=== PATIENT | male | born 1985 | race African-American/Black ===

== ENCOUNTER 2016-07-27 10:58 | Emergency (ER) | payer OTHER ==
[~2016-07-27] VITALS: Ht 193 cm; Wt 76.2 kg
[2016-07-27 11:27] VITALS: BP 91/68
[2016-07-27] MEDS ORDERED: LORA10TA19 PO (11:29)
--- NOTE | 2016-07-27 13:16 | NUR ---
Patient ambulated to bed 03.
--- NOTE | 2016-07-27 13:18 | NUR ---
30M BIB SELF C/O SHARP, MID-ABDOMINAL PAIN, NON-RADIATING, / X 2 WEEKS; ABDOMEN SOFT, FLAT, NON-TENDER, ACTIVE BOWEL SOUNDS X 4 QUADRANTS; DENIES N/V/D AT THIS TIME; PT A&OX4, PERRLA, BL LUNG SOUNDS CLEAR, RR EVEN/UNLABORED, SKIN IS WARM/DRY/INTACT AT THIS TIME; STEADY GAIT; PT RESTING IN BED W/ HOB ELEVATED AND IN LOWEST POSITION; POSITIONED FOR COMFORT; ER MD MADE AWARE OF STATUS. WILL CONTINUE TO MONITOR.
[2016-07-27] MEDS ORDERED: DICYCLOMINE HCL LIQUID 10 MG/5 ML UDC PO ONE (13:25)
[2016-07-27] MEDS ORDERED: FAMOTIDINE 20 MG TAB PO ONE (13:25)
[2016-07-27] MEDS ORDERED: ONDANSETRON 4 MG ODT PO ONE (13:25)
[2016-07-27 13:37] LABS: HEMATOCRIT 44.1 % (36-52); HEMOGLOBIN 14.5 g/dL (12.0-18.0); MEAN CORPUSCULAR HEMOGLOBIN 32 pg (27-31); MEAN CORPUSCULAR HGB CONC 33 g/dL (33-37); MEAN CORPUSCULAR VOLUME 96 fL (80-94); PLATELET COUNT (AUTO) 222 K/uL (140-450); RED BLOOD CELL COUNT(AUTO) 4.58 MIL/uL (4.20-6.10); RED CELL DISTRIBUTION WIDTH 11.7 % (11.6-13.7); WHITE BLOOD COUNT (AUTO) 6.4 K/uL (4.8-10.8)
[2016-07-27 13:44] LABS: ANION GAP 8.9 (8-16); CARBON DIOXIDE 31.1 mmol/L (21-32); CREATININE 1.1 mg/dL (0.6-1.3)
--- NOTE | 2016-07-27 13:45 | NUR ---
Patient taken to XRAY via wheelchair per tech.
[2016-07-27 13:50] LABS: ALBUMIN 3.9 g/dL (3.4-5.0); TOTAL BILIRUBIN 0.9 mg/dL (0.0-1.0); TOTAL PROTEIN, SERUM 7.5 g/dL (6.4-8.2)
--- NOTE | 2016-07-27 13:50 | NUR ---
Patient back from XRAY via wheelchair per tech.
[2016-07-27 13:53] LABS: EOSINOPHILS % (MANUAL) 7 % (0-4); LYMPHOCYTES % (MANUAL) 37 % (20-46); MONOCYTES % (MANUAL) 8 % (5-12); NEUTROPHILS % (MANUAL) 48 (43-65); PLATELET ESTIMATE ADEQUATE
--- NOTE | 2016-07-27 14:18 | NUR ---
Note undone in EDM - 07/27/16 at 1443 by MEDSS 30M BIB SELF C/O SHARP, MID-ABDOMINAL PAIN, NON-RADIATING, 1/10 X 2 WEEKS; ABDOMEN SOFT, FLAT, NON-TENDER, ACTIVE BOWEL SOUNDS X 4 QUADRANTS; DENIES N/V/D AT THIS TIME; PT A&OX4, PERRLA, BL LUNG SOUNDS CLEAR, RR EVEN/UNLABORED, SKIN IS WARM/DRY/INTACT AT THIS TIME; STEADY GAIT; PT RESTING IN BED W/ HOB ELEVATED AND IN LOWEST POSITION; POSITIONED FOR COMFORT; ER MADE AWARE OF STATUS. WILL CONTINUE TO MONITOR.
[2016-07-27 14:45] VITALS: BP 122/73
--- NOTE | 2016-07-27 14:45 | NUR ---
Patient discharged with v/s stable. Written and verbal after care instructions given and explained. Patient alert, oriented and verbalized understanding of instructions. Ambulatory with to car. All questions addressed prior to discharge. ID band removed. Patient advised to follow up with PMD. Rx of PRILOSEC 40MG AND BENTYL 20MG TAB given. Patient educated on indication of medication including possible reaction and side effects. Opportunity to ask questions provided and answered.
== END 2016-07-27 14:45 | disposition home or self-care (01) ==
LOC: MED 10:58
DX: R10.10 Upper abdominal pain, unspecified (principal); R11.2 Nausea with vomiting, unspecified; K59.00 Constipation, unspecified; F17.200 Nicotine dependence, unspecified, uncomplicated; Z71.6 Tobacco abuse counseling
CPT/HCPCS: 36415; 74000; 80053; 83690; 85025; 99285; S0119

== ENCOUNTER 2017-12-15 17:59 | Emergency (ER) | payer OTHER ==
[~2017-12-15] VITALS: Ht 193 cm; Wt 77.6 kg
[~2017-12-15 17:59] MED LIST: LORA10TA19 PO
[2017-12-15 18:02] VITALS: BP 121/78
--- NOTE | 2017-12-15 18:10 | NUR ---
BIB SELF. AMB WITH STEADY GAIT. PATIENT PRESENTS TO ED WITH SORE THROAT AND NAUSEA X1 DAY. STATES HE VOMITTED ONCE. PT STATES HE HAS NOT HAD A BM IN 8 DAYS. SKIN IS WARM/DRY; AAOX4 WITH EVEN AND STEADY GAIT; LUNGS CLEAR BL; HR EVEN AND REGULAR; PT DENIES ANY FEVER, CP, SOB, OR COUGH AT THIS TIME; PATIENT STATES PAIN OF 5/10 AT THIS TIME; VSS; PATIENT POSITIONED FOR COMFORT; HOB ELEVATED; BEDRAILS UP X2; BED DOWN. ER MD MADE AWARE OF PT STATUS.
[2017-12-15] MEDS ORDERED: methylPREDNISolone SS 125 MG in WATER STERILE 2 ML IM ONE (18:30)
[2017-12-15] MEDS ORDERED: CLINDAMYCIN 600 MG/4 ML VIAL IM ONE (18:30)
[2017-12-15 18:55] VITALS: BP 125/78
--- NOTE | 2017-12-15 18:56 | NUR ---
Patient discharged with v/s stable. Written and verbal after care instructions given and explained. Patient alert, oriented and verbalized understanding of instructions. Ambulatory with steady gait. All questions addressed prior to discharge. ID band removed. Patient advised to follow up with PMD. Rx of PREDNISONE AND CLINDAMYCIN given. Patient educated on indication of medication including possible reaction and side effects. Opportunity to ask questions provided and answered.
== END 2017-12-15 18:56 | disposition home or self-care (01) ==
LOC: MED 17:59
DX: J02.9 Acute pharyngitis, unspecified (principal); R11.0 Nausea; Z88.1 Allergy status to other antibiotic agents; Z79.899 Other long term (current) drug therapy
CPT/HCPCS: 96372; 99284; J2930; J3490

== ENCOUNTER 2018-01-04 10:53 | Inpatient (IN) | payer OTHER ==
[~2018-01-04] VITALS: Ht 190.5 cm; Wt 72.6 kg
--- NOTE | 2018-01-04 10:59 | NUR ---
PT AMBULATED TO BED 8
--- NOTE | 2018-01-04 11:00 | NUR ---
32y/m bib self c/o llq pain with nausea and vomiting x 5 days, last bm monday pt states fatigue, nasal congestion, and lump left side of neck, pt is aaox4, vss, bed down, bedrail up x 1, er md aware and notified of pt status. hx; denies rn; none
[2018-01-04 11:03] VITALS: BP 121/80
[2018-01-04] MEDS ORDERED: NACL 0.9% 1,000 ML IV ONE (12:09)
--- NOTE | 2018-01-04 12:09 | NUR ---
Patient being evaluated by physician at bedside.
[2018-01-04] MEDS ORDERED: KETOROLAC 30 MG/ML VIAL IVP ONE (12:10)
[2018-01-04] MEDS ORDERED: ONDANSETRON 4 MG/2 ML VIAL IVP ONE (12:10)
[2018-01-04 12:33] LABS: BASOPHILS % (AUTO) 0.4 % (0.0-2.0); EOSINOPHILS # (AUTO) 0.3 K/uL (0-0.4); EOSINOPHILS % (AUTO) 4.6 % (0.0-4.0); HEMATOCRIT 38.9 % (36-52); HEMOGLOBIN 13.1 g/dL (12.0-18.0); LYMPHOCYTES # (AUTO) 1.6 K/uL (2.0-11.5); LYMPHOCYTES % (AUTO) 24.7 % (20.5-51.1); MEAN CORPUSCULAR HEMOGLOBIN 33 pg (27-31); MEAN CORPUSCULAR HGB CONC 34 g/dL (33-37); MEAN CORPUSCULAR VOLUME 96.5 fL (80-94); MONOCYTES # (AUTO) 0.5 K/uL (0.8-1.0); MONOCYTES % (AUTO) 7.4 % (1.7-9.3); NEUTROPHILS % (AUTO) 62.9 % (42.2-75.2); PLATELET COUNT (AUTO) 356 K/uL (140-450); RED BLOOD CELL COUNT(AUTO) 4.03 MIL/uL (4.20-6.10); RED CELL DISTRIBUTION WIDTH 12.8 % (11.6-13.7); WHITE BLOOD COUNT (AUTO) 6.3 K/uL (4.8-10.8)
[2018-01-04 12:45] LABS: ANION GAP 7.2 (8-16); CREATININE 1.3 mg/dL (0.7-1.3); POTASSIUM 4.2 mmol/L (3.5-5.1)
[2018-01-04 12:51] LABS: ALBUMIN 3.9 g/dL (3.4-5.0); TOTAL BILIRUBIN 0.5 mg/dL (0.0-1.0)
--- NOTE | 2018-01-04 13:55 | NUR ---
pt taken to ct
--- NOTE | 2018-01-04 14:00 | NUR ---
pt back from ct
[2018-01-04] MEDS ORDERED: MORPHINE SULFATE 2 MG/ML SYR IVP PRN (14:55)
[2018-01-04] MEDS ORDERED: ONDANSETRON 4 MG/2 ML VIAL IM/IVP PRN (14:55)
[2018-01-04] MEDS ORDERED: LORazepam 2 MG/ML VIAL IM/IVP PRN (14:55)
[2018-01-04] MEDS ORDERED: DOCUSATE SODIUM 100 MG GELCAP PO PRN (14:55)
[2018-01-04] MEDS ORDERED: HYDROcodone/APAP 5/325 MG 1 TAB TAB PO PRN (14:55)
[2018-01-04] MEDS ORDERED: ACETAMINOPHEN 325 MG TAB PO PRN (14:55)
[2018-01-04] MEDS ORDERED: ZOLPIDEM 5 MG TAB PO PRN (14:55)
[2018-01-04 15:27] LABS: PROTHROMBIN TIME 10.1 secs (10.8-13.4)
--- NOTE | 2018-01-04 15:35 | NUR ---
Patient will be admitted to care of DR. NARANJO. Admited to [facility]. Will go to [facility]. Belongings list completed. Report to PATRICE POLK.
[2018-01-04 15:38] LABS: MAGNESIUM 2.3 mg/dL (1.8-2.4); PHOSPHORUS 3.6 mg/dL (2.5-4.9); THYROID STIMULATING HORMONE 2.27 uIU/mL (0.34-3.74)
[2018-01-04 16:00] VITALS: BP 110/70
--- NOTE | 2018-01-04 16:00 | NUR ---
RECEIVED PT FROM ER NURSE RENEA AT BEDSIDE. PT IS AOX4, SKIN INTACT. HAS LFT AC 20G, HEP LOCK AT THIS TIME. PT ADMITTED WITH DX OF INTRAPERITONEAL FLUID, WITH CC OF LLQ ABDOMINAL PAIN. PT IS SELF AMBULATORY. STATES TO HAVE BEEN VOMITING SINCE MONDAY, LBM 12/30/17. PT WAS GIVEN TORADOL AND ZOFRAN IN ER. DENIES ANY PAIN AND NAUSEA AT THIS TIME. VS NOTED NORMAL. BP 110/70, T 98.2, O2 SAT 1005V ON RA, HR 60 PAIN 0/10. OBTAINED MRSA SWAB AND SENT TO LAB. PLACED CALL LIGHT WITHIN PT REACH, INFORMED PT TO USE CALL LIGHT FOR ANY HELP. PT ON NPO. 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 SMOKES 5-6 CIGARETTES DAILY. EDUCATED PT THAT HE NEEDS TO BE ON NPO FOR ANY POSSIBLE PROCEDURE RELATED TO HIS DX. NOT TO EAT OR DRINK ANYTHING UNTIL NEW DIET ORDERED HAS BEEN PROVIDED BY . VERBALIZED UNDERSTANDING. WILL CONTINUE OT MONITOR PT.
[2018-01-04] MEDS: DEXT 5% / NACL 0.45% 1,000 ML IV SCH (17:42)
[2018-01-04] MEDS ORDERED: BISACODYL 10 MG SUPP RC SCH (18:00)
[2018-01-04] MEDS ORDERED: MINERAL OIL 135 ML ENEM RC SCH (18:00)
--- NOTE | 2018-01-04 18:06 | NUR ---
ORDERED CLARIFIED BY DR PATEL. PT TO TAKE LACTULOSE AFTER 2 HRS OF ENEMA. ADMINISTERED ENEMA TO PT. TOLERATED WELL. AND SUPPOSITORY WELL. EDUCATED PT TO HOLD MUCH TOLERATED BEFORE USING RESTROOM. VERBALIZED UNDERSTANDING. WILL CONTINUE TO MONITOR PT.
--- NOTE | 2018-01-04 19:15 | NUR ---
ENDORSED PT TO PM NURSE AT BEDSIDE FOR CONTINUITY OF CARE. PT IN STABLE CONDITION.
--- NOTE | 2018-01-04 19:16 | NUR ---
RECD. RESTING IN BED, AWAKE, A/OX4, RESPIRATION EVEN AND UNLABORED. IV OF D51/2 NS AT 100 ML/HR INFUSING, LEFT AC G18. AMBULATING INDEPENDENTLY. NPO. LAST BM WAS MONDAY. INSTRUCTED TO CALL NURSE WHEN HAVING ONE, AFTER ENEMA WAS GIVEN BY THE AM NURSE. PLAN OF CARE FOR THE SHIFT DISCUSSED. VERBALIZED UNDERSTANDING. DENIES PAIN 0/10.
[2018-01-04 20:00] VITALS: BP 126/66
--- NOTE | 2018-01-04 20:00 | NUR ---
Patient's Plan of Care was discussed and reviewed with ORE SMELTER: TATO KRAFT LVN.
[2018-01-04] MEDS: LACTULOSE 20 GM/30 ML UDC PO SCH (20:05)
--- NOTE | 2018-01-04 22:00 | NUR ---
SLEEPING COMFORTABLY IN BED, NO COMPLAINT OF ABDOMINAL PAIN.
[2018-01-05] MEDS: DEXT 5% / NACL 0.45% 1,000 ML IV SCH ×3 (01:27→21:26)
--- NOTE | 2018-01-05 02:30 | NUR ---
HAD MODERATE AMOUNT OF BM.
--- NOTE | 2018-01-05 05:00 | NUR ---
INSTRUCTED TO CALL NURSE AFTER VOIDING IN THE URINAL TO BE ABLE TO SENT URINE SPECIMEN TO THE LAB.
[2018-01-05 06:07] LABS: BASOPHILS % (AUTO) 0.6 % (0.0-2.0); EOSINOPHILS # (AUTO) 0.6 K/uL (0-0.4); EOSINOPHILS % (AUTO) 12.1 % (0.0-4.0); HEMOGLOBIN 11.1 g/dL (12.0-18.0); LYMPHOCYTES # (AUTO) 1.9 K/uL (2.0-11.5); LYMPHOCYTES % (AUTO) 36.3 % (20.5-51.1); MEAN CORPUSCULAR HEMOGLOBIN 33 pg (27-31); MEAN CORPUSCULAR HGB CONC 34 g/dL (33-37); MEAN CORPUSCULAR VOLUME 97.2 fL (80-94); MONOCYTES # (AUTO) 0.5 K/uL (0.8-1.0); MONOCYTES % (AUTO) 9.4 % (1.7-9.3); NEUTROPHILS # (AUTO) 2.2 K/uL (1.8-7.7); NEUTROPHILS % (AUTO) 41.6 % (42.2-75.2); PLATELET COUNT (AUTO) 287 K/uL (140-450); RED CELL DISTRIBUTION WIDTH 12.9 % (11.6-13.7); WHITE BLOOD COUNT (AUTO) 5.2 K/uL (4.8-10.8)
[2018-01-05 06:40] LABS: ANION GAP 3.7 (8-16); CARBON DIOXIDE 29.7 mmol/L (21-32); CREATININE 1.3 mg/dL (0.7-1.3); POTASSIUM 4.4 mmol/L (3.5-5.1)
[2018-01-05 06:46] LABS: MAGNESIUM 2.1 mg/dL (1.8-2.4); PHOSPHORUS 4.2 mg/dL (2.5-4.9)
[2018-01-05 06:58] LABS: CHOL/HDL RATIO 2.3 (1-4.5)
--- NOTE | 2018-01-05 07:10 | NUR ---
NO COMPLAINT OF ABDOMINAL PAIN DURING SHIFT. CONDITION REMAIN STABLE. ENDORSED TO PATRICE RESENDIZ FOR CONTINUITY OF CARE.
[2018-01-05 07:21] LABS: T4 (THYROXINE) 10.6 ug/dL (4.5-12.0)
--- NOTE | 2018-01-05 07:30 | NUR ---
RECEIVED ON BED AAOX4. NO SOB NOTED. NO C/O PAIN AT THIS TIME. IV TO LT AC PATENT AND INTACT. CHEST CLEAR. ABDOMEN SOFT, BOWEL SOUNDS PRESENT. NO EDEMA NOTED. NPO MAINTAINED ORDERED. INSTRUCTED PT TO CALL FOR ASSISTANCE, CALL LIGHT WITHIN REACH. PT VERBALIZED UNDERSTANDING.
[2018-01-05 08:00] VITALS: BP 112/59
--- NOTE | 2018-01-05 08:05 | NUR ---
PATIENT HAS BEEN SCREENED AND CATEGORIZED HIGH NUTRITION RISK. PATIENT WILL BE SEEN WITHIN 1-2 DAYS OF ADMISSION. 01/05/18 01/06/[address]
[2018-01-05] MEDS ORDERED: PANTOPRAZOLE 40 MG INJ VIAL IVP SCH (09:00)
[2018-01-05] MEDS: LACTULOSE 20 GM/30 ML UDC PO SCH ×2 (09:00→13:00)
--- NOTE | 2018-01-05 10:30 | NUR ---
FROM JOHN PAUL, REF NUMBER [phone] ADMISSION CHARGE REVIEW DONE. FAXED ADMIT ORDER, ER REPORT, H&P, PROGRESS NOTES, MEDICATION LIST, CT SCAN REPORTS, AND REVIEW TO JOHN PAUL [phone] PHONE [phone] PATRICIA Blanchard [id number]
--- NOTE | 2018-01-05 11:02 | NUR ---
01/05/18 RD INITIAL ASSESSMENT COMPLETED PLEASE REFER TO NUTRITION ASSESSMENT UNDER CARE ACTIVITY FOR ESTIMATED NUTRITIONAL NEEDS. 1. CONTINUE NPO MEDICALLY APPROPRIATE 2. WHEN PT IS MEDICALLY STABLE CONSIDER ADVANCING TO BRAT DIET TOLERATED 3. ENCOURAGE PO INTAKE 4. RD PROVIDED EDUCATION TO INCREASE KCAL INTAKE 5. RD TO FOLLOW-UP 3-5 DAYS, MODERATE RISK DAVION TEJADA, RD
--- NOTE | 2018-01-05 12:40 | NUR ---
urine specimen collected and sent to lab.
--- NOTE | 2018-01-05 13:38 | NUR ---
PT SEEN BY DR. MYERS AT THE BEDSIDE, DISCUSSED THE RISKS AND BENEFITS OF PLANNED PROCEDURE. CONSENT FOR EGD SIGNED BY PT, VERBALIZED UNDERSTANDING.
[2018-01-05] MEDS ORDERED: diphenhydrAMINE 50 MG/ML VIAL ONE (13:41)
[2018-01-05] MEDS: MIDAZOLAM 2 MG/2 ML VIAL ONE ×2 (13:41→14:09)
[2018-01-05] MEDS: fentaNYL 0.05 MG/ML VIAL ONE ×2 (13:41→14:09)
--- NOTE | 2018-01-05 13:45 | NUR ---
PT WHEELED TO SURGERY IN STABLE CONDITION.
[2018-01-05 13:51] LABS: APPEARANCE,URINE CLEAR (CLEAR); BILIRUBIN,URINE NEGATIVE (NEGATIVE); BLOOD, URINE NEGATIVE (NEGATIVE); COLOR,URINE YELLOW (YELLOW); LEUKOCYTE ESTERASE ,URINE NEGATIVE (NEGATIVE); NITRITE, URINE NEGATIVE (NEGATIVE); UGLUCOSE NEGATIVE (NEGATIVE)
[2018-01-05 14:01] LABS: BARBITURATE, URINE NEG. ng/ml (NEG <=200); BENZODIAZEPINE, URINE NEG. ng/mL (NEG <=200); CANNABINOID, URINE POS. ng/mL (NEG <=50); COCAINE, URINE POS. ng/mL (NEG <=300); OPIATE, URINE NEG. ng/mL (NEG <=2000); PHENCYCLIDINE SCREEN,URINE NEG. ng/mL (NEG <=25)
[2018-01-05 14:55] VITALS: BP 112/60
--- NOTE | 2018-01-05 14:55 | NUR ---
pt back from EGD in stable condition. pt AAOx4. no sob noted. no c/o pain at this time.
--- NOTE | 2018-01-05 18:15 | NUR ---
PT TOLERATED FULL LIQUID DIET, NO N&V NOTED. NO C/O ABD PAIN.
--- NOTE | 2018-01-05 19:00 | NUR ---
RECEIVED BEDSIDE REPORT FROM PATRICE RESENDIZ. PT IN BED, RA, NO SIGNS OF DISTRESS, IV IN LEFT HAND 22G INFUSING D5 AND 1/2 NS AT 100 ML/HR. SITE IS PATENT AND INTACT. PT DENIES PAIN, CALL LIGHT WITHIN REACH, EXPLAINED PLAN OF CARE, UPDATED BOARD, WILL CONTINUE TO MONITOR.
--- NOTE | 2018-01-05 19:00 | NUR ---
PT RESTING. NO SOB NOTED. NO COMPLAINTS MADE. WILL ENDORSE TO NEXT SHIFT NURSE FOR CONTINUITY OF CARE.
[2018-01-05] MEDS: PANTOPRAZOLE 40 MG INJ VIAL IVP SCH (21:26)
--- NOTE | 2018-01-05 21:26 | NUR ---
DUE MEDICATION GIVEN, PT TOLERATED WELL, OFFERED JELLO, PT TOLERATED WELL. WILL CONTINUE TO MONITOR, CALL LIGHT WITHIN REACH.
--- NOTE | 2018-01-05 23:30 | NUR ---
PT RESTING IN BED, REQUEST TO HAVE WARM BLANKET. CALL LIGHT WITHIN REACH, WILL CONTINUE TO MONITOR.
[2018-01-06] VITALS: BP 114/55
--- NOTE | 2018-01-06 | NUR ---
V/S TAKEN, ALL WITHIN BASELINE. IV INFUSING D5 AND 1/2 NS, SITE IS CLEAN AND DRY. CALL LIGHT WITHIN REACH, WILL CONTINUE TO MONITOR.
[2018-01-06] MEDS ORDERED: INFLUENZA VIRUS VACCINE QUAD 0.5 ML SYR IMVAC PRN (01:40)
--- NOTE | 2018-01-06 02:00 | NUR ---
PT AMBULATED TO BATHROOM, STEADY GAIT. WILL CONTINUE TO MONITOR.
--- NOTE | 2018-01-06 04:30 | NUR ---
PT AMBULATED TO RESTROOM TO URINATE. ASSISTED BACK INTO BED, CALL LIGHT WITHIN REACH, WILL CONTINUE TO MONITOR.
[2018-01-06] MEDS: DEXT 5% / NACL 0.45% 1,000 ML IV SCH (06:13)
--- NOTE | 2018-01-06 06:30 | NUR ---
PT ASLEEP IN BED, IV INFUSING D5 AND 1/2 NS AT 100 ML/HR, SITE IS CLEAN AND DRY. CALL LIGHT WITHIN REACH.
--- NOTE | 2018-01-06 07:15 | NUR ---
ENDORSED PT TO DAY SHIFT NURSE, PT STABLE.
--- NOTE | 2018-01-06 07:20 | NUR ---
PATIENT WAS SLEEPING COMFORTABLY, EASILY AROUSABLE BY NAME. RESPIRATION EVEN, UNLABOR ON ROOM AIR. SKIN DRY AND WARM. IV PATENT AND INTACT. DENIED PAIN, N/V AT THIS TIME. PLAN OF CARE WAS DISCUSSED WITH PATIENT. BED AT LOW POSITION, SIDE RAILS UP. CALL LIGHT WITHIN REACH
[2018-01-06 08:00] VITALS: BP 101/46
[2018-01-06] MEDS ORDERED: CLARITHROMYCIN 500 MG TAB PO SCH (09:00)
[2018-01-06] MEDS ORDERED: LACTULOSE 20 GM/30 ML UDC PO SCH (09:00)
[2018-01-06] MEDS ORDERED: AMOXICILLIN 500 MG CAP PO SCH (09:00)
[2018-01-06] MEDS ORDERED: DOCU-299 PO (09:04)
[2018-01-06] MEDS ORDERED: AMOX500C25 PO (09:04)
[2018-01-06] MEDS ORDERED: PANT40EC PO (09:04)
[2018-01-06] MEDS ORDERED: CLAR500T PO (09:04)
[2018-01-06] MEDS: PANTOPRAZOLE 40 MG INJ VIAL IVP SCH (09:43)
--- NOTE | 2018-01-06 09:45 | NUR ---
PATIENT AWAKE, ALERT. RESPIRATION EVEN, UNLABOR ON ROOM AIR. NO DISTRESS NOTED AT THIS TIME. CALL LIGHT WITHIN REACH. MD AT BEDSIDE
--- NOTE | 2018-01-06 10:23 | NUR ---
INFLUENZA SAMPLE WAS COLLECTED AND SENT TO LAB
[2018-01-06] MEDS ORDERED: INFLUENZA VIRUS VACCINE QUAD 0.5 ML SYR IMVAC ONE (11:46)
--- NOTE | 2018-01-06 11:56 | NUR ---
PATIENT WAS AWAKE, ALERT. RESPIRATION EVEN, UNLABOR ON ROOM AIR. NO DISTRESS NOTED AT THIS TIME. FLU VACCINE WAS GIVEN PER ORDER.
--- NOTE | 2018-01-06 14:04 | NUR ---
DISCHARGE INSTRUCTION, PRESCRIPTION, AND IMAGE CD WERE GIVEN AND EXPLAINED TO THE PATIENT. PATIENT VERBALIZED UNDERSTANDING. IV WAS REMOVED, CATHETER INTACT, NO ACTIVE BLEEDING SEEN. FLU VAC WAS GIVEN PER ORDER.
--- NOTE | 2018-01-06 14:15 | NUR ---
PATIENT WAS ESCORTED OUT BY STAFF. ID BAND WAS REMOVED. ALL BELONGINGS WERE TAKEN WITH THE PATIENT. PATIENT IS STABLE AT THIS TIME
--- NOTE | 2018-01-06 16:00 | NUR ---
PATIENT WAS ESCORTED OUT BY STAFF. ID BAND WAS REMOVED. ALL BELONGINGS WERE TAKEN WITH THE PATIENT. PATIENT IS STABLE AT THIS TIME
== END 2018-01-06 14:15 | disposition home or self-care (01) | DRG 241 ==
LOC: MED 10:53 → MTU 14:59
PROVIDERS: ADMIT General Practice; ATTEND General Practice
PROC: 0DB78ZX Excision of Stomach, Pylorus, Via Natural or Artificial Opening Endoscopic, Diagnostic (ICD-10-PCS; 2018-01-05)
PROC: 0DB68ZX Excision of Stomach, Via Natural or Artificial Opening Endoscopic, Diagnostic (ICD-10-PCS; principal; 2018-01-05 13:45)
PROC: 3E0234Z Introduction of Serum, Toxoid and Vaccine into Muscle, Percutaneous Approach (ICD-10-PCS; 2018-01-06)
DX: K25.9 Gastric ulcer, unspecified as acute or chronic, without hemorrhage or perforation (principal); R13.10 Dysphagia, unspecified; B96.81 Helicobacter pylori [H. pylori] as the cause of diseases classified elsewhere; F10.10 Alcohol abuse, uncomplicated; F12.90 Cannabis use, unspecified, uncomplicated; K29.20 Alcoholic gastritis without bleeding; F15.90 Other stimulant use, unspecified, uncomplicated; F14.90 Cocaine use, unspecified, uncomplicated; K59.00 Constipation, unspecified; K21.9 Gastro-esophageal reflux disease without esophagitis; F17.210 Nicotine dependence, cigarettes, uncomplicated; R22.1 Localized swelling, mass and lump, neck; Z88.1 Allergy status to other antibiotic agents; Z79.899 Other long term (current) drug therapy; Z83.3 Family history of diabetes mellitus; Z82.5 Family history of asthma and other chronic lower respiratory diseases; Z23 Encounter for immunization
CPT/HCPCS: 36415; 71045; 74018; 76536; 80048; 80053; 80305; 81003; 83036; 83690; 83735; 83880; 84100; 84134; 84436; 84443; 84484; 85025; 85610; 85730; 86677; 87081; 87804; 90658; 96361; 96374; 96375; 99285; C9113; J1200; J1885; J2250; J2405; J3010; J7030; Q0092; Q9967

== ENCOUNTER 2018-10-29 10:12 | Emergency (ER) | payer OTHER ==
[~2018-10-29] VITALS: Ht 193 cm; Wt 77.6 kg
[~2018-10-29 10:12] MED LIST changes: +AMOX500C25 PO; +CLAR500T PO; +DOCU-299 PO; +PANT40EC PO
[2018-10-29 10:17] VITALS: BP 119/85
--- NOTE | 2018-10-29 10:22 | NUR ---
Patient ambulated to bed 7. RN evaluating patient at bedside.
--- NOTE | 2018-10-29 10:26 | NUR ---
Flor kimball in [facility] - 10/29/18 at [address] Herrera evaluating patient at bedside.
[2018-10-29] MEDS ORDERED: KETOROLAC 60 MG/2 ML VIAL IM ONE (11:05)
[2018-10-29 11:39] VITALS: BP 116/72
--- NOTE | 2018-10-29 11:42 | NUR ---
Patient discharged with v/s stable. Written and verbal after care instructions given and explained. Patient alert, oriented and verbalized understanding of instructions. Ambulatory with steady gait. All questions addressed prior to discharge. ID band removed. Patient advised to follow up with PMD. Rx of MOTRIN 800 MG AND NORCO 5MG-325MG given. Patient educated on indication of medication including possible reaction and side effects. Opportunity to ask questions provided and answered.
== END 2018-10-29 11:42 | disposition home or self-care (01) ==
LOC: MED 10:12
DX: M54.2 Cervicalgia (principal); F17.200 Nicotine dependence, unspecified, uncomplicated; Z88.1 Allergy status to other antibiotic agents; Z79.899 Other long term (current) drug therapy
CPT/HCPCS: 96372; 99283; J1885

== ENCOUNTER 2019-01-27 10:19 | Emergency (ER) | payer OTHER ==
[~2019-01-27] VITALS: Ht 193 cm; Wt 77.1 kg
[2019-01-27 10:25] VITALS: BP 153/81
--- NOTE | 2019-01-27 10:25 | NUR ---
PT IN WHEELCHAIR TO ER BED 07
--- NOTE | 2019-01-27 10:49 | NUR ---
C/O SYNCOPAL EPISODE TODAY AT WORK. PT REPORTS STRETCHING AND AFTERWARDS FEELING LIKE HE WAS GOING TO "BLACK OUT". PT STATES HE REMEMBERS GUIDING HIMSELF TO THE FLOOR, BUT DOES NOT KNOW WHEN HE HIT HIS HEAD. PT DENIES N/V SINCE INCIDENT. PT IS A & O X4, SPEAKING CLEARLY AND APPROPRIATELY. FSBS 106. DENIES USE OF ILLICET DRUGS/ETOH. PT SUSTAINED 4CM LAC TO R EYEBROW, 6/10 PAIN AT THIS TIME. BLEEDING CONTROLLED. BED LOCKED IN LOW POSITION, SIDE RAIL UP X1. PT ADVISED TO ASK FOR ASSISTANCE IF HE NEEDS TO AMBULATE.
--- NOTE | 2019-01-27 10:55 | NUR ---
DR. MCKAY AT BEDSIDE
[2019-01-27] MEDS ORDERED: VANCOMYCIN 1,000 MG in DEXTROSE 5% 250 ML IV ONE (11:05)
[2019-01-27] MEDS ORDERED: NACL 0.9% 1,000 ML IV ONE (11:05)
[2019-01-27] MEDS ORDERED: VANCOMYCIN 1,000 MG VIAL ONE (11:16)
[2019-01-27 11:45] LABS: BASOPHILS % (AUTO) 0.9 % (0.0-2.0); EOSINOPHILS # (AUTO) 0.3 K/uL (0-0.4); EOSINOPHILS % (AUTO) 8.5 % (0.0-4.0); HEMATOCRIT 42.1 % (36-52); HEMOGLOBIN 14.1 g/dL (12.0-18.0); LYMPHOCYTES # (AUTO) 1.4 K/uL (2.0-11.5); LYMPHOCYTES % (AUTO) 41.6 % (20.5-51.1); MEAN CORPUSCULAR HEMOGLOBIN 33 pg (27-31); MEAN CORPUSCULAR HGB CONC 34 g/dL (33-37); MEAN CORPUSCULAR VOLUME 96.9 fL (80-94); MONOCYTES # (AUTO) 0.3 K/uL (0.8-1.0); MONOCYTES % (AUTO) 9.1 % (1.7-9.3); NEUTROPHILS # (AUTO) 1.4 K/uL (1.8-7.7); NEUTROPHILS % (AUTO) 39.9 % (42.2-75.2); PLATELET COUNT (AUTO) 218 K/uL (140-450); RED BLOOD CELL COUNT(AUTO) 4.34 MIL/uL (4.20-6.10); RED CELL DISTRIBUTION WIDTH 12.6 % (11.6-13.7); WHITE BLOOD COUNT (AUTO) 3.5 K/uL (4.8-10.8)
--- NOTE | 2019-01-27 12:09 | NUR ---
URINE COLLECTED AND SENT TO LAB, PT PLACED ON BEDSIDE PROJECT COORDINATOR RN
--- NOTE | 2019-01-27 12:25 | NUR ---
PT LEFT TO CT
[2019-01-27 12:33] LABS: CHLORIDE 103 mmol/L (98-107); POTASSIUM 4.9 mmol/L (3.5-5.1); SODIUM SERUM 141 mmol/L (136-145)
[2019-01-27 12:34] LABS: ANION GAP 11.9 (8-16); CREATININE 1.2 mg/dL (0.7-1.3); GFR ARICAN-AMERICAN 90 mL/min (>90); GLUCOSE 77 mg/dL (74-106); TOTAL BILIRUBIN 0.6 mg/dL (0.0-1.0); UREA NITROGEN, BLOOD 13 mg/dL (7-18)
[2019-01-27 12:35] LABS: ALBUMIN 3.9 g/dL (3.4-5.0); ASPARTATE AMINOTRANSFERASE 23 U/L (15-37)
--- NOTE | 2019-01-27 12:36 | NUR ---
PT RETURNED FROM CT
--- NOTE | 2019-01-27 13:10 | NUR ---
PT ASLEEP IN BED, AROUSABLE TO VERBAL STIMULI
[2019-01-27 13:35] LABS: BARBITURATE, URINE NEGATIVE ng/ml (NEG <=200); BENZODIAZEPINE, URINE NEGATIVE ng/mL (NEG <=200); CANNABINOID, URINE POSITIVE ng/mL (NEG <=50); COCAINE, URINE NEGATIVE ng/mL (NEG <=300); OPIATE, URINE NEGATIVE ng/mL (NEG <=2000); PHENCYCLIDINE SCREEN,URINE NEGATIVE ng/mL (NEG <=25)
[2019-01-27 13:57] LABS: APPEARANCE,URINE CLEAR (CLEAR); BILIRUBIN,URINE NEGATIVE (NEGATIVE); BLOOD, URINE NEGATIVE (NEGATIVE); COLOR,URINE YELLOW (YELLOW); LEUKOCYTE ESTERASE ,URINE NEGATIVE (NEGATIVE); NITRITE, URINE NEGATIVE (NEGATIVE); UGLUCOSE NEGATIVE (NEGATIVE)
[2019-01-27] MEDS ORDERED: LIDOCAINE MPF 1% 0 ML ONE (14:02)
[2019-01-27] MEDS ORDERED: LIDOCAINE/EPI 2% 1:100000 20 ML VIAL INJ ONE (14:03)
[2019-01-27] MEDS ORDERED: LIDOCAINE/EPI MPF 2%1:200000 10 ML VIAL INJ ONE (14:05)
--- NOTE | 2019-01-27 14:37 | NUR ---
APPLIED NON-ADHERENT DRESSING TO ABOVE RIGHT EYE WITHOUT ANY ISSUES
--- NOTE | 2019-01-27 15:25 | NUR ---
PT AMBULATED TO RESTROOM
[2019-01-27 15:46] VITALS: BP 142/74
--- NOTE | 2019-01-27 15:46 | NUR ---
Patient discharged with v/s stable. Written and verbal after care instructions given and explained. Patient alert, oriented and verbalized understanding of instructions. Ambulatory with steady gait. All questions addressed prior to discharge. ID band removed. Patient advised to follow up with PMD. Rx of KEFLEX, MOTRIN given. Patient educated on indication of medication including possible reaction and side effects. Opportunity to ask questions provided and answered.
== END 2019-01-27 15:46 | disposition home or self-care (01) ==
LOC: MED 10:19
DX: S01.81XA Laceration without foreign body of other part of head, initial encounter (principal); R55 Syncope and collapse; F15.90 Other stimulant use, unspecified, uncomplicated; F12.90 Cannabis use, unspecified, uncomplicated; F17.210 Nicotine dependence, cigarettes, uncomplicated; Z79.899 Other long term (current) drug therapy; Z88.1 Allergy status to other antibiotic agents; Z71.6 Tobacco abuse counseling; S01.111A Laceration without foreign body of right eyelid and periocular area, initial encounter; W18.30XA Fall on same level, unspecified, initial encounter; Y93.89 Activity, other specified; Y92.89 Other specified places as the place of occurrence of the external cause; Y99.8 Other external cause status
CPT/HCPCS: 12015; 36415; 70450; 71045; 80053; 80305; 81003; 82550; 84484; 85025; 90471; 90715; 93005; 96365; 96366; 99284; G0482; J2001; J3370; Q0092; J7030

== ENCOUNTER 2019-02-04 14:23 | Emergency (ER) | payer OTHER ==
[~2019-02-04] VITALS: Ht 193 cm; Wt 73.9 kg
[2019-02-04 14:42] VITALS: BP 122/76
--- NOTE | 2019-02-04 15:03 | NUR ---
PT TAKEN TO BED 10.
--- NOTE | 2019-02-04 15:08 | NUR ---
PT NEEDS SUTURES TO BE REMOVED FROM R EYEBROW, R FOREHEAD, AND R EYELID. SUTURES ARE CLEAN, DRY, INTACT. NO DRAINAGE, REDNESS, OR SWELLING NOTED. PT DENIES PAIN. VS STABLE. PT ALERT AND AWAKE. BED IS DOWN, LOCKED, BED RAIL X 1, ERMD TO SEE PT
--- NOTE | 2019-02-04 15:38 | NUR ---
SONYA HEALY AT BEDSIDE
[2019-02-04 16:58] VITALS: BP 117/71
--- NOTE | 2019-02-04 16:58 | NUR ---
Patient discharged with v/s stable. Written and verbal after care instructions given and explained REGARDING SUTURE REMOVAL. Patient alert, oriented and verbalized understanding of instructions. Ambulatory with steady gait. All questions addressed prior to discharge. ID band removed. Patient advised to follow up with PMD IN 2-3 DAYS. Rx of TOPICAL BACITRACIN given. Patient educated on indication of medication including possible reaction and side effects. Opportunity to ask questions provided and answered.
== END 2019-02-04 16:58 | disposition home or self-care (01) ==
LOC: MED 14:23
DX: S01.111D Laceration without foreign body of right eyelid and periocular area, subsequent encounter (principal); Z48.02 Encounter for removal of sutures; X58.XXXD Exposure to other specified factors, subsequent encounter; Z79.899 Other long term (current) drug therapy; Z79.2 Long term (current) use of antibiotics; Z88.1 Allergy status to other antibiotic agents
CPT/HCPCS: 99282

== ENCOUNTER 2020-03-11 12:11 | Emergency (ER) | payer OTHER, SELFPAY ==
[~2020-03-11] VITALS: Ht 193 cm; Wt 77.1 kg
[~2020-03-11 12:11] MED LIST changes: -CLAR500T PO; +CLAR500T99 PO
[2020-03-11 12:34] VITALS: BP 140/72
--- NOTE | 2020-03-11 13:08 | NUR ---
C/O FEVER,CHILLS X1 DAY HX DENIES
--- NOTE | 2020-03-11 13:08 | NUR ---
LYN HWANG collected, walked to lab.
[2020-03-11 13:09] VITALS: BP 140/72
--- NOTE | 2020-03-11 13:09 | NUR ---
Patient discharged with v/s stable. Written and verbal after care instructions given and explained. Patient alert, oriented and verbalized understanding of instructions. Ambulatory with steady gait. All questions addressed prior to discharge. ID band removed. Patient advised to follow up with PMD. Rx of tynenol extra strength 500mg PO 1-2 tabs prn given. Patient educated on indication of medication including possible reaction and side effects. Opportunity to ask questions provided and answered.
--- NOTE | 2020-03-13 21:15 | NUR ---
Positive COVID-19 test results were received from lab. A copy of the test results were given to Infection Control.
== END 2020-03-11 13:09 | disposition home or self-care (01) ==
LOC: MED 12:11
DX: U07.1 COVID-19 (principal); J02.9 Acute pharyngitis, unspecified; F17.210 Nicotine dependence, cigarettes, uncomplicated; Z79.899 Other long term (current) drug therapy
CPT/HCPCS: 99283; U0003

== ENCOUNTER 2020-11-28 19:37 | Emergency (ER) | payer OTHER ==
[~2020-11-28] VITALS: Ht 182.9 cm; Wt 86.2 kg
--- NOTE | 2020-11-28 19:37 | NUR ---
TESS GUERRERO, PREBOOK. TAKEN TO CHAIR A
[2020-11-28 19:52] VITALS: BP 119/89
[2020-11-28] MEDS ORDERED: ACET-2619 PO (19:59)
[2020-11-28 20:20] VITALS: BP 119/89
--- NOTE | 2020-11-28 20:21 | NUR ---
PATIENT BIB [employer]. PATIENT EXAMINED BY DR. ANDREW. PATIENT MEDICALLY CLEARED AND RELEASED IN CUSTODY IN STABLE CONDITION. ORIGINAL PRE-BOOK FORM GIVEN TO OFFICER.
== END 2020-11-28 20:21 ==
LOC: MED 19:37
DX: S09.90XA Unspecified injury of head, initial encounter (principal); Z02.89 Encounter for other administrative examinations; V89.2XXA Person injured in unspecified motor-vehicle accident, traffic, initial encounter; Y93.89 Activity, other specified; Y92.89 Other specified places as the place of occurrence of the external cause; Y99.8 Other external cause status
CPT/HCPCS: 90471; 90715; 99283